=== PATIENT | female | born 1945 | race Caucasian/White ===

== ENCOUNTER 2021-05-16 18:21 | Inpatient (IN) ==
[2021-05-16] MEDS ORDERED: MORPHINE 2 MG/1 ML SYRINGE IV PRN (22:32)
[2021-05-16] MEDS ORDERED: DEXTROSE 50% 25 GM/50 ML VIAL IV PRN (22:32)
[2021-05-16] MEDS ORDERED: SIMETHICONE CHEW 125 MG TABLET PO PRN (22:32)
[2021-05-16] MEDS ORDERED: ACETAMINOPHEN 325 MG TABLET PO PRN (22:32)
[2021-05-16] MEDS ORDERED: ONDANSETRON 4 MG/2 ML VIAL IV PRN (22:32)
[2021-05-16] MEDS ORDERED: hydrALAZINE 20 MG/1 ML VIAL IV PRN (22:32)
[2021-05-16] MEDS ORDERED: GLUCAGON 1 MG VIAL IM PRN (22:32)
[2021-05-16] MEDS ORDERED: POTASSIUM CHLORIDE RIDER 10 MEQ/100 ML PREMIX IV PRN (22:43)
[2021-05-16] MEDS ORDERED: MAGNESIUM SULF RIDER 4 GM/100 ML PREMIX IV PRN (22:43)
[2021-05-16] MEDS ORDERED: MAGNESIUM SULF RIDER 2 GM/50 ML PREMIX IV PRN (22:43)
[2021-05-16 23:05] LABS: Basophils # 0.1 10*3/uL (0.0-0.2); Basophils % 0.7 % (0.0-0.8); Eosinophils # 0.1 10*3/uL (0.0-0.87); Eosinophils % 1.2 % (0.00-10.9); Hematocrit 40.3 VOL% (35.7-47.0); Hemoglobin 13.4 GM/DL (12.0-16.0); Immature Granulocytes % 0.5 %; Immature Granulocytes Absolute 0.05 #; Lymphocytes # 2.2 10*3/uL (1.4-4.0); Lymphocytes % 22.4 % (21.3-54.2); Mean Corpuscular HGB Conc 33.3 GM/DL (32-36); Mean Corpuscular Volume 94.6 FL (87-102); Monocytes % 8.6 % (1.7-12.7); Neutrophils % 66.6 % (38.7-73.9); Platelet Count 355 T/CUMM (130-400); Red Blood Count 4.26 MC/CUMM (3.8-5.5); Red Cell Distribution Width 14.3 % (9.3-17.3)
[2021-05-16] MEDS: carvediloL 3.125 MG TABLET PO SCH (23:29)
[2021-05-16 23:30] LABS: Albumin 3.5 G/DL (3.4-5.0); Bilirubin,Total 0.8 MG/DL (0.20-1.00); Calcium 9.3 MG/DL (8.5-10.1); Osmolality,Calculated 274.8 MOS/KG (273-304); Potassium 3.6 MMOL/L (3.5-5.1); Thyroid Stimulating Hormone 30.9 uIU/ml (0.358-3.74); Total Protein 7.6 G/DL (6.4-8.2)
[2021-05-17 01:49] LABS: Risk Ratio 6.06; VLDL Cholesterol 31.4 MG/DL
[2021-05-17 05:46] LABS: PT Patient Result 11.5 SECS (10.5-12.0)
[2021-05-17] MEDS ORDERED: DEXTROSE 50% 25 GM/50 ML VIAL IV PRN (07:12)
[2021-05-17] MEDS ORDERED: ASPIRIN CHEW 81 MG TABLET PO SCH (09:00)
[2021-05-17] MEDS ORDERED: ENOXAPARIN 40 MG/0.4 ML SYRINGE SUBCUT SCH (09:00)
[2021-05-17] MEDS: ALBUTEROL/IPRATROPIUM 3 ML NEB RESP TX SCH ×3 (10:40→18:48)
[2021-05-17] MEDS: lisinopriL 2.5 MG TABLET PO SCH (10:44)
[2021-05-17] MEDS: DOCUSATE SODIUM 100 MG CAPSULE PO SCH ×3 (10:44→20:54)
[2021-05-17] MEDS: FUROSEMIDE 40 MG/4 ML VIAL IV SCH ×2 (10:44→19:26)
[2021-05-17] MEDS: carvediloL 3.125 MG TABLET PO SCH ×2 (10:44→20:54)
[2021-05-17] MEDS: PANTOPRAZOLE 40 MG TABLET PO SCH (10:44)
[2021-05-17] MEDS: INSULIN LISPRO 100 UNIT/ML SUBCUT SCH ×4 (10:45→20:54)
[2021-05-17] MEDS ORDERED: HEPARIN DRIP 25,000 UNITS/500 ML PREMIX IV SCH (16:00)
[2021-05-17 17:44] LABS: Basophils # 0.1 10*3/uL (0.0-0.2); Basophils % 1.2 % (0.0-0.8); Eosinophils # 0.3 10*3/uL (0.0-0.87); Hemoglobin 14.4 GM/DL (12.0-16.0); Immature Granulocytes % 0.8 %; Immature Granulocytes Absolute 0.07 #; Lymphocytes # 2.2 10*3/uL (1.4-4.0); Lymphocytes % 23.8 % (21.3-54.2); Mean Corpuscular HGB Conc 32.7 GM/DL (32-36); Mean Corpuscular Volume 95.4 FL (87-102); Mean Platelet Volume 10.4 FL (9.6-12.0); Monocytes % 9.9 % (1.7-12.7); Neutrophils % 61.3 % (38.7-73.9); Platelet Count 374 T/CUMM (130-400); Red Blood Count 4.61 MC/CUMM (3.8-5.5); Red Cell Distribution Width 14.4 % (9.3-17.3); White Blood Count 9.2 T/CUMM (4-12)
[2021-05-17] MEDS ORDERED: ATORVASTATIN 10 MG TABLET PO SCH (21:00)
[2021-05-17] MEDS ORDERED: ATORVASTATIN 80 MG TABLET PO SCH (21:00)
[2021-05-18] MEDS: ALBUTEROL/IPRATROPIUM 3 ML NEB RESP TX SCH ×4 (01:07→11:02)
[2021-05-18 05:45] LABS: Basophils # 0.1 10*3/uL (0.0-0.2); Basophils % 1.3 % (0.0-0.8); Eosinophils # 0.4 10*3/uL (0.0-0.87); Eosinophils % 5.7 % (0.00-10.9); Hematocrit 44.1 VOL% (35.7-47.0); Hemoglobin 14.6 GM/DL (12.0-16.0); Immature Granulocytes % 0.4 %; Immature Granulocytes Absolute 0.03 #; Mean Corpuscular HGB Conc 33.1 GM/DL (32-36); Mean Corpuscular Volume 95.2 FL (87-102); Mean Platelet Volume 10.9 FL (9.6-12.0); Monocytes % 10.3 % (1.7-12.7); Neutrophils % 56.3 % (38.7-73.9); Platelet Count 329 T/CUMM (130-400); Red Blood Count 4.63 MC/CUMM (3.8-5.5); Red Cell Distribution Width 14.4 % (9.3-17.3); White Blood Count 7.6 T/CUMM (4-12)
[2021-05-18 05:55] LABS: INR 3.6; PT Patient Result 36.6 SECS (10.5-12.0)
[2021-05-18 06:20] LABS: Albumin 3.2 G/DL (3.4-5.0); Total Protein 7.4 G/DL (6.4-8.2)
[2021-05-18 06:28] LABS: Calcium 8.9 MG/DL (8.5-10.1); Osmolality,Calculated 271.1 MOS/KG (273-304); Potassium 3.1 MMOL/L (3.5-5.1)
[2021-05-18] MEDS ORDERED: LEVOTHYROXINE 137 MCG TABLET PO SCH (06:30)
[2021-05-18] MEDS: INSULIN LISPRO 100 UNIT/ML SUBCUT SCH ×2 (08:43→12:11)
[2021-05-18] MEDS ORDERED: ASPIRIN 325 MG TABLET PO SCH (09:00)
[2021-05-18] MEDS: POTASSIUM CHLORIDE 20 MEQ TABLET PO SCH ×2 (10:00)
[2021-05-18] MEDS: lisinopriL 2.5 MG TABLET PO SCH (10:00)
[2021-05-18] MEDS: PANTOPRAZOLE 40 MG TABLET PO SCH (10:00)
[2021-05-18] MEDS: DOCUSATE SODIUM 100 MG CAPSULE PO SCH (10:00)
[2021-05-18] MEDS: carvediloL 3.125 MG TABLET PO SCH (10:00)
[2021-05-18] MEDS: FUROSEMIDE 40 MG/4 ML VIAL IV SCH (10:00)
[2021-05-18 12:39] VITALS: BP 100/40
[2021-05-18] MEDS ORDERED: metFORMIN 500 MG TABLET PO SCH (17:00)
[2021-05-18] MEDS ORDERED: APIXABAN 5 MG TABLET PO SCH (21:00)
== END 2021-05-18 13:30 | disposition home health service (06) | DRG 175 ==
LOC: N.TELES → SUATTDRO 20:11
PROVIDERS: ADMIT Internal Medicine; ATTEND Internal Medicine

== ENCOUNTER 2022-08-07 13:25 | Inpatient (IN) ==
[2022-08-07 15:57] LABS: Calcium 9.1 MG/DL (8.5-10.1); Osmolality,Calculated 269.7 MOS/KG (273-304); Potassium 3.8 MMOL/L (3.5-5.1)
[2022-08-07] MEDS ORDERED: BISACODYL 5 MG TABLET PO PRN (16:31)
[2022-08-07] MEDS ORDERED: ONDANSETRON 4 MG/2 ML VIAL IV PRN (16:31)
[2022-08-07] MEDS ORDERED: DOCUSATE SODIUM 100 MG CAPSULE PO PRN (16:31)
[2022-08-07] MEDS ORDERED: ACETAMINOPHEN 325 MG TABLET PO PRN (16:31)
[2022-08-07] MEDS: FUROSEMIDE 40 MG/4 ML VIAL IV SCH (17:35)
[2022-08-07] MEDS ORDERED: TICAGRELOR 90 MG TABLET PO SCH (21:00)
[2022-08-07 21:15] LABS: INR 3.9; PT Patient Result 39.3 SECS (10.1-12.1); Partial Thromboplastin Time 40.9 SECS (23.7-32.9)
[2022-08-07] MEDS: ENOXAPARIN 60 MG/0.6 ML SYRINGE SUBCUT SCH (22:01)
[2022-08-07] MEDS: DIPHENHYDRAMINE PO SCH (22:02)
[2022-08-07] MEDS: NAPROXEN PO SCH (22:02)
[2022-08-07] MEDS: TEMAZEPAM 15 MG CAPSULE PO SCH (22:02)
[2022-08-08 05:20] LABS: Basophils # 0.1 10*3/uL (0.0-0.2); Basophils % 0.7 % (0.0-0.8); Eosinophils % 0.5 % (0.00-10.9); Hemoglobin 13.3 GM/DL (12.0-16.0); Immature Granulocytes Absolute 0.08 #; Lymphocytes % 23.6 % (21.3-54.2); Mean Corpuscular HGB Conc 30.9 GM/DL (32-36); Mean Corpuscular Volume 87.4 FL (87-102); Mean Platelet Volume 10.4 FL (9.6-12.0); Monocytes # 1.1 10*3/uL (0.11-0.8); Monocytes % 12.5 % (1.7-12.7); NRBC # 0.02 10*3/uL; Neutrophils % 61.7 % (38.7-73.9); Platelet Count 327 T/CUMM (130-400); Red Blood Count 4.92 MC/CUMM (3.8-5.5); Red Cell Distribution Width 24.8 % (9.3-17.3); White Blood Count 8.4 T/CUMM (4-12)
[2022-08-08] MEDS: FUROSEMIDE 40 MG/4 ML VIAL IV SCH ×3 (05:39→18:44)
[2022-08-08 05:47] LABS: Albumin 3.6 G/DL (3.4-5.0); Bilirubin,Total 1.9 MG/DL (0.20-1.00); Calcium 9.4 MG/DL (8.5-10.1); Osmolality,Calculated 268.8 MOS/KG (273-304); Potassium 3.9 MMOL/L (3.5-5.1); Total Protein 7.3 G/DL (6.4-8.2)
[2022-08-08] MEDS ORDERED: CLOPIDOGREL 300 MG TABLET PO ONE (07:37)
[2022-08-08] MEDS: LEVOTHYROXINE 137 MCG TABLET PO SCH (08:48)
[2022-08-08 08:52] LABS: High Sensitive Troponin I* 80.3 ng/L (0-54)
[2022-08-08 09:05] LABS: Hepatitis B Core IgM Quant 0.06 Index; Hepatitis B Surface Ag Quant < 0.10 Index; Hepatitis B Surface Ag Result Non-Reactive (NonReactive); Hepatitis C Virus Ab Quant < 0.02 Index; Hepatitis C Virus Ab Result Non-Reactive (NonReactive)
[2022-08-08 09:16] LABS: Arterial Base Excess iSTAT 5 MMOL/L (-2.5-2.5); Arterial Bicarbonate iSTAT 29.5 MMOL/L (20-26); Arterial O2 Saturation iSTAT 99 % (95-100); Arterial PCO2 iSTAT 42 MM HG (35-48); Arterial PO2 iSTAT 112 MM HG (80-95); Arterial Total CO2 iSTAT 31 MMO/L (23-27); Arterial pH iSTAT 7.454 (7.35-7.45)
[2022-08-08] MEDS: PANTOPRAZOLE 40 MG TABLET PO SCH (10:14)
[2022-08-08] MEDS: SPIRONOLACTONE 50 MG TABLET PO SCH (10:14)
[2022-08-08] MEDS: MAGNESIUM CHLORIDE 64 MG TABLET PO SCH (10:14)
[2022-08-08] MEDS: ASPIRIN EC 81 MG TABLET PO SCH (10:14)
[2022-08-08] MEDS: FERROUS SULFATE 325 MG TABLET PO SCH (10:14)
[2022-08-08] MEDS: POTASSIUM CHLORIDE 10 MEQ TABLET PO SCH (10:14)
[2022-08-08] MEDS ORDERED: FUROSEMIDE 40 MG/4 ML VIAL IV ONE (10:45)
[2022-08-08] MEDS: carvediloL 3.125 MG TABLET PO SCH ×2 (11:42→21:35)
[2022-08-08 13:27] LABS: Lymphocytes,Pleural Fluid 85 %; Monocytes,Pleural Fluid 7 %; Neutrophils,Pleural Fluid 8 %
[2022-08-08 13:31] LABS: RBC,Pleural Fluid 795 T/CUMM
[2022-08-08 17:51] LABS: Bacteria,Urine Occasional /HPF (Few); Bilirubin,Urine Negative (Negative); Blood, Urine Negative (Negative); Glucose,Urine (UA) Negative (Negative); Hyaline Casts,Urine 42 /LPF (0-3); Ketones,Urine Negative (Negative); Mucus,Urine Occasional /LPF (Occasional); Nitrite,Urine Negative (Negative); Protein,Urine 30 mg/dL (Negative); RBC,Urine 1 /HPF (0-4); Squamous Epithelial Cell,Urine Occasional /HPF (0-10); Urine Appearance Clear (Clear); Urine Color Yellow (Yellow); Urine Specific Gravity 1.015 (1.001-1.035); Urine pH 5.5 (4.5-8.0)
[2022-08-08] MEDS: TEMAZEPAM 15 MG CAPSULE PO SCH (21:35)
[2022-08-08] MEDS: ENOXAPARIN 60 MG/0.6 ML SYRINGE SUBCUT SCH (21:35)
[2022-08-08] MEDS: DIPHENHYDRAMINE PO SCH (21:36)
[2022-08-08] MEDS: NAPROXEN PO SCH (21:36)
[2022-08-08] MEDS: FUROSEMIDE 40 MG/4 ML VIAL IM SCH (22:07)
[2022-08-09] MEDS: LEVOTHYROXINE 137 MCG TABLET PO SCH (05:45)
[2022-08-09 07:27] LABS: Basophils # 0.1 10*3/uL (0.0-0.2); Basophils % 0.8 % (0.0-0.8); Eosinophils # 0.2 10*3/uL (0.0-0.87); Eosinophils % 1.8 % (0.00-10.9); Hematocrit 40.6 VOL% (35.7-47.0); Hemoglobin 12.8 GM/DL (12.0-16.0); Immature Granulocytes Absolute 0.08 #; Lymphocytes # 1.4 10*3/uL (1.4-4.0); Lymphocytes % 16.5 % (21.3-54.2); Mean Corpuscular HGB Conc 31.5 GM/DL (32-36); Mean Corpuscular Volume 87.1 FL (87-102); Mean Platelet Volume 10.5 FL (9.6-12.0); Monocytes # 0.8 10*3/uL (0.11-0.8); Monocytes % 9.6 % (1.7-12.7); NRBC # 0.02 10*3/uL; Neutrophils % 70.3 % (38.7-73.9); Platelet Count 302 T/CUMM (130-400); Red Blood Count 4.66 MC/CUMM (3.8-5.5); Red Cell Distribution Width 24.6 % (9.3-17.3); White Blood Count 8.4 T/CUMM (4-12)
[2022-08-09 07:58] LABS: Calcium 8.5 MG/DL (8.5-10.1); Osmolality,Calculated 274.5 MOS/KG (273-304)
[2022-08-09 08:03] LABS: Albumin 3.2 G/DL (3.4-5.0); Bilirubin,Total 1.3 MG/DL (0.20-1.00); Calcium 8.8 MG/DL (8.5-10.1); Osmolality,Calculated 277.2 MOS/KG (273-304); Potassium 4.3 MMOL/L (3.5-5.1); Total Protein 6.4 G/DL (6.4-8.2)
[2022-08-09 08:14] LABS: Hypochromia Slight; Polychromasia Slight
[2022-08-09 08:15] LABS: Microcytosis 1+; Target Cells Slight
[2022-08-09 08:16] LABS: Platelet Estimate Normal
[2022-08-09] MEDS ORDERED: MAGNESIUM SULF RIDER 2 GM/50 ML PREMIX IV ONE (08:20)
[2022-08-09] MEDS ORDERED: CLOPIDOGREL 75 MG TABLET PO SCH (09:00)
[2022-08-09] MEDS: PANTOPRAZOLE 40 MG TABLET PO SCH (09:56)
[2022-08-09] MEDS: POTASSIUM CHLORIDE 10 MEQ TABLET PO SCH (09:56)
[2022-08-09] MEDS: MAGNESIUM CHLORIDE 64 MG TABLET PO SCH (09:56)
[2022-08-09] MEDS: ASPIRIN EC 81 MG TABLET PO SCH (09:56)
[2022-08-09] MEDS: SPIRONOLACTONE 50 MG TABLET PO SCH (09:56)
[2022-08-09] MEDS: carvediloL 3.125 MG TABLET PO SCH (09:56)
[2022-08-09] MEDS: FERROUS SULFATE 325 MG TABLET PO SCH (09:56)
[2022-08-09] MEDS ORDERED: MAGNESIUM CHLORIDE 64 MG TABLET PO ONE (11:50)
[2022-08-09] MEDS ORDERED: FUROSEMIDE 40 MG/4 ML VIAL IM ONE (11:50)
[2022-08-09] MEDS: FUROSEMIDE 40 MG/4 ML VIAL IM SCH (11:59)
[2022-08-09 12:12] VITALS: BP 121/66
[2022-08-09] MEDS ORDERED: FUROSEMIDE 40 MG/4 ML VIAL IV SCH (16:00)
== END 2022-08-09 14:44 | disposition home health service (06) | DRG 186 ==
LOC: EDUNIT# → EDBD → N.ED 13:25 → N.EDINP 13:25 → OBSVTOIN 17:16 → SUATTDRO 17:16 → N.TELES 17:48
PROVIDERS: ADMIT Internal Medicine; ATTEND Internal Medicine